=== PATIENT | female | born 1940 | race Caucasian/White ===

== ENCOUNTER 2016-11-28 17:26 | Emergency (ER) | payer MEDICARE, OTHER ==
--- NOTE | ~2016-11-28 | CN ---
Consultation Report [facility] [address] [facility] [place]. [address] NAME: SHERLY CARRINGTON : 42 STATUS : ADM IN [facility]#: [id number] AGE: 76 ADM/REG DATE : 11/28/16 MR#: [id number] REPORT SERV DATE: 11/29/16 DICTATED BY: RAISA KENYON DATE: 11/29/16 REPORT STATUS : Draft TRANSCRIBED BY: MODPaz DATE: 11/29/16 CARDIOLOGY CONSULTATION DATE OF CONSULTATION: PRIMARY MARINE ENGINE DRIVER: Raisa Kenyon M.D. CHIEF COMPLAINT: Dizziness. REASON FOR CONSULTATION: Atrial fibrillation. SOURCE: The patient and her chart. HISTORY OF PRESENT ILLNESS: Ms. Carrington is a very pleasant 76-year-old white woman with history of hypertension and left ventricular hypertrophy who was in her usual state of health until the day before yesterday when she "felt weird." She was dizzy in the shower and had near syncope but did not actually lose consciousness. She had another episode yesterday in a bookstore where she felt weird again, she saw Dr. Blackmon, who did an EKG, which was abnormal, and she was sent to the hospital for further care. She has not had any palpitations or actual syncope. No chest pain. No shortness of breath. Her legs have swollen a little. Her blood pressure has been low for her. She denies any diarrhea, constipation, or hair loss. REVIEW OF SYSTEMS: All other systems are negative. ALLERGIES: NO KNOWN DRUG ALLERGIES. MEDICATIONS: At home included amlodipine, artificial tears, [place], CoQ10, hydrochlorothiazide, metoprolol, multivitamins, omeprazole, Zoloft, and simvastatin. CARDIAC RISK FACTORS: Include hypertension, cholesterol, and remote tobacco. Denies diabetes or family history. SOCIAL HISTORY: The patient lives in [place], [place]. She is . Her biological son of heart disease. She is retired. FAMILY HISTORY: Negative for coronary disease at a young age. PAST MEDICAL HISTORY: Significant for hypertension and LVH. She had a stress test and an echocardiogram which were negative last year. Appendectomy in 1970 and cataract surgery. PHYSICAL EXAMINATION: GENERAL: A well-developed, well-nourished elderly white woman in no acute distress. VITAL Consultation Report [facility] [address] [place]. [address] NAME: SHERLY CARRINGTON : 42 STATUS : ADM IN PAT#: [id number] AGE: 76 ADM/REG DATE : 11/28/16 MR#: [id number] REPORT SERV DATE: 11/29/16 DICTATED BY: RAISA KENOYN DATE: 11/29/16 REPORT STATUS : Draft TRANSCRIBED BY: MODPaz DATE: 11/29/16 SIGNS: Stable grossly, afebrile. Heart rate is 90 to 100. Telemetry reveals atrial fibrillation. HEENT: Sclerae anicteric. Lips without cyanosis. NECK: Carotids 2+ and symmetrical. No bruits. No JVD. No thyromegaly. LUNGS: Clear to auscultation. No use of accessory muscles. HEART: Irregularly irregular without murmur, gallop, or rub. ABDOMEN: Positive bowel sounds. Soft and nontender. EXTREMITIES: Pulses are 2+ and symmetrical. No cyanosis, clubbing, or edema. BACK: No CVA tenderness. MUSCULOSKELETAL: Good tone. NEUROLOGIC: Alert and oriented x3. LABORATORY DATA: The EKG reveals atrial fibrillation with rate 74, nonspecific ST-T wave changes. Labs included white count 12.3, hemoglobin 14.9, hematocrit 45.0, platelets 254,000. INR 1.0, PTT 34.9, and BNP level 134. Sodium 140, potassium 3.6, chloride 103, CO2 of 25, glucose 110, BUN 31, and creatinine 1.12. TSH of 0.008. Free T4 of 1.34 and T3 free of 2.83. The procalcitonin is 0.08. CPK 92, MB 1.3, and troponin of less than 0.02. The urinalysis is pending at this time. The chest x-ray reveals no acute cardiopulmonary abnormality. IMPRESSION: 1. New-onset atrial fibrillation, possibly two days by history, rate fair control, on metoprolol. 2. CHADS2 score of 2 for hypertension and age. 3. Hypertension, under good control. 4. LVH and diastolic dysfunction. 5. Markedly suppressed TSH with normal free T4. RECOMMENDATIONS: 1. IV heparin, change to novel oral anticoagulants such as Eliquis. The risks, benefits, and complications were discussed with the patient. She understands them and those of her alternatives and wishes to proceed. Questions answered. 2. DELORES cardioversion. Today, the risks, benefits, and complications were discussed with the patient. She understands them and those of her alternatives and wishes to proceed. Questions answered. 3. Hospital Service to address thyroid. 4. Discussed with Dr. Beltre. KARTIK/RENARD Consultation Report [place] [address] [place]. [address] NAME: SHERLY CARRINGTON : 42 STATUS : ADM IN [facility]#: [id number] AGE: 76 ADM/REG DATE : 11/28/16 MR#: [id number] REPORT SERV DATE: 11/29/16 DICTATED BY: RAISA KENYON DATE: 11/29/16 REPORT STATUS : Draft TRANSCRIBED BY: RENARD DATE: 11/29/16 Raisa Kenyon M.D. / [id number] CC: Oscar Gonzales MD
--- NOTE | ~2016-11-28 | DS ---
Discharge Summary [facility] [place] [address] [place]. [address] NAME: SHERLY MULLEN : 42 STATUS : DIS IN PAT#: [id number] AGE: 76 ADM/REG DATE : 11/28/16 MR#: [id number] REPORT SERV DATE: 11/29/16 DICTATED BY: HELEN COOPER DATE: 11/29/16 REPORT STATUS : Draft TRANSCRIBED BY: MODL DATE: 11/29/16 ADMISSION DATE: 11/28/2016 DISCHARGE DATE: 11/29/2016 DIAGNOSES ON ADMISSION: 1. New onset atrial fibrillation. 2. History of hypertension. 3. Probable hyperthyroidism. 4. Hyperlipidemia. 5. Mild acute kidney injury, secondary to dehydration. DIAGNOSES ON DISCHARGE: 1. Atrial fibrillation, status post cardioversion, currently in normal sinus rhythm. 2. Subclinical hyperthyroidism, with suppressed TSH, normal free T4 and free T3. Recommended to see nail professional as an outpatient for further workup. 3. Mild acute kidney injury, secondary to dehydration, resolved next day with IV fluid hydration. 4. Mild asymptomatic urinary tract infection. Empiric antibiotic treatment was recommended since the patient did not have any symptoms, she can do it as an outpatient. 5. Hypertension, controlled. CONSULTANTS ON THE CASE: Railroad [employer] Truck Builder, Dr. Horace Sutherland for atrial fibrillation. PROCEDURES DONE: Cardioversion done on 11/29/2016. IMAGING STUDIES: Echocardiogram done on 11/29/2016, showed technically difficult stat study, normal left ventricular size and systolic function, estimated ejection fraction of 60%, no regional wall motion abnormalities, mild concentric LVH, normal right ventricle size and systolic function, moderate left atrial enlargement, no significant valvular disease. Chest x-ray done on 11/28/2016, no acute cardiopulmonary abnormality. Renal duplex ultrasound done on 11/29/2016 was normal. HISTORY OF PRESENT ILLNESS: Briefly, this is a very pleasant 76-year-old female, who was admitted by my colleague, Dr. Shital Nash for irregular heart beat and Dr. Sutherland her commercial manager was consulted, as well as she had mild dehydration on admission, and her creatinine on admission was 1.4. She was started on IV fluids and commercial manager was consulted for possible cardioversion and management of her atrial fibrillation. For the details, see history of present illness dictated by Dr. Yudith Nash on 11/28/2016. CONSULTANTS ON THE CASE: Dr. Vinicio Sutherland. HOSPITAL COURSE: Briefly, the patient was admitted to the hospital. Next day was seen by commercial manager, Dr. Sutherland, who recommended cardioversion and also he recommended the patient to be on Eliquis after cardioversion. The patient had successful cardioversion and her heart rate was in 70s, blood pressure as well was controlled in 150s and 140s. The patient Discharge Summary [address] [address] NAME: SHERLY MULLEN : 42 STATUS : DIS IN PAT#: [id number] AGE: 76 ADM/REG DATE : 11/28/16 MR#: [id number] REPORT SERV DATE: 11/29/16 DICTATED BY: HELEN COOPER DATE: 11/29/16 REPORT STATUS : Draft TRANSCRIBED BY: RENARD DATE: 11/29/16 was doing very well after cardioversion. I personally spoke with Dr. Sutherland and he recommended the patient to be discharged today since she was in normal sinus rhythm. She was asymptomatic and doing very well, and Dr. Sutherland recommended the patient to continue Eliquis in the dose of 5 mg p.o. twice a day, and I wrote prescription for Eliquis for patient per recommendation of Dr. Sutherland. Also, he recommended the patient to follow up with him in three to four weeks, as well as he recommended to continue her metoprolol at the home dose 50 mg p.o. b.i.d.. Subclinical hyperthyroidism. The patient on admission had her TSH checked and her TSH was over suppressed, it was 0.008. Although, her free T4 was 1.34, and free T3 was 2.83, which is a normal lab results. So, the patient has supper clinical hyperthyroidism which definitely can progress to overt hyperthyroidism, and the patient had a small nodule on her neck. The patient was offered workup, but she wanted to be discharged and to have outpatient workup. So, she was recommended to follow up with outpatient nail professional for further evaluation of her subclinical hyperthyroidism. She was given several names including Dr. Go and other nail professional in city and also Dr. Gonzales her primary care physician, will need to refer her to see nail professional, and the patient was agreeable to follow up with nail professional. Mild acute kidney injury, secondary to dehydration, resolved. Her creatinine improved yesterday, on 11/28/2016 it was 1.4, and today after fluid hydration creatinine was 1.12. It was recommended the patient to hold her hydrochlorothiazide and recheck her basic metabolic panel next week per Dr. Gonzales. Her electrolytes also were in the normal range. She was doing well. The patient was discharged in a stable condition per recommendation of Dr. Sutherland. As she herself also was requesting to be discharged. The patient was switched to observation. FOLLOWUP: Followup with Dr. Gonzales next week to check her basic metabolic panel. Follow up with Dr. Sutherland in three to four weeks. Follow up with nail professional as an outpatient for further workup of her subclinical hyperthyroidism. DISCHARGE MEDICATIONS: Eliquis 5 mg p.o. b.i.d., prescription was given for one month with one month refill per recommendation of Dr. Horace Sutherland and the correctional casework specialist assisted with Eliquis course, the patient was given a discount card. Ceftin 500 mg p.o. b.i.d. for three days for her asymptomatic UTI, antibiotic prescription was written. The patient to continue her home medications, calcium with vitamin D 500 mg a day, multivitamins daily, metoprolol 50 mg p.o. twice a day to be continued per recommendation of Dr. Horace Sutherland, omeprazole 20 mg a day, Zoloft 50 mg in afternoon and 100 mg in the morning; simvastatin 20 mg a day, Norvasc 10 mg a day. The patient was told to stop HCTZ. Coenzyme Q 200 mg a day, and artificial tears daily, I spent 45 minutes on discharge. MG/MODL Discharge Summary [address] [facility] [address] NAME: SHERLY MULLEN : 42 STATUS : DIS IN PAT#: [id number] AGE: 76 ADM/REG DATE : 11/28/16 MR#: [id number] REPORT SERV DATE: 11/29/16 DICTATED BY: HELEN COOPER DATE: 11/29/16 REPORT STATUS : Draft TRANSCRIBED BY: RENARD DATE: 11/29/16 Helen Cooper M.D. / [id number] CC: Kelly Radford MD Brian Negus, M.D. David Huffman, M.D.
--- NOTE | ~2016-11-28 | HP ---
History And Physical [facility] [address] [place]. [address] NAME: SHERLY MULLEN : 42 STATUS : ADM IN [facility]#: [id number] AGE: 76 ADM/REG DATE : 11/28/16 MR#: [id number] REPORT SERV DATE: 11/29/16 DICTATED BY: YUDITH FERRER DATE: 11/28/16 REPORT STATUS : Draft TRANSCRIBED BY: RENARD DATE: 11/28/16 DATE OF ADMISSION: 11/28/2016 CHIEF COMPLAINT: Palpitation and dizziness. Sent by primary care provider because of irregular heartbeats for one day. HISTORY OF PRESENT ILLNESS: This is a very pleasant 76-year-old female. She has a history of hypertension, history of GERD, history of hyperlipidemia, history of depression with anxiety, presenting today to [facility] from her primary care provider, Dr. Oscar Gonzales's office with complaints of irregular heart beats, palpitation, and dizziness for one day. It is important to note that the patient has a fairly healthy lady, no significant past medical history, except that she has been seen by Dr. Sutherland about one year ago for an abnormal EKG after she has been referred by her primary care provider. At that time, the patient tells me that she had a stress test which was normal and Dr. Sutherland prescribed some medications for high blood pressure. Since then she has no other medical issues. Yesterday, she woke up and she felt dizzy, near syncopal, and having a lot of palpitations. She did not have any chest pain or increasing shortness of breath. No PND or orthopnea. She has had not any syncope. No nausea or vomiting. No diarrhea, or constipation. No headaches. No increased urinary frequency or urgencies. No other complaints. After initial evaluation in the emergency room, Hospitalist Service has been asked for admission for further evaluation and treatment. PAST MEDICAL HISTORY: Significant for hypertension, hyperlipidemia, history of GERD, history of obesity, and anxiety disorder. PAST SURGICAL HISTORY: Include appendectomy, prior tumor removal from the left foot, and tubal ligation. SOCIAL HISTORY: Denies tobacco, alcohol, or IV drugs. ALLERGIES: THE PATIENT HAS NO DRUG ALLERGIES. FAMILY HISTORY: Significant for hypertension and diabetes and goiter. MEDICATIONS AT HOME: Include amlodipine, artificial tears, calcium and vitamin D, coenzyme Q, hydrochlorothiazide, Lopressor, multivitamin, Prilosec, Zoloft, Zocor, and ear drops. REVIEW OF SYSTEMS: A 14-point review of systems has been obtained and pertinent positive has been listed into the history of present illness. Otherwise, negative except those underlying above. PHYSICAL EXAMINATION: VITAL SIGNS: Currently, the patient is afebrile. Blood pressure 177/93, heart rate 121/30, respiratory rate 16, and saturating 93% on room air. GENERAL: She is a very pleasant, well-developed, well-nourished female, in nonacute distress. She is alert and oriented x3. She is nonfocal. She follows all her commands History And Physical [address] [address] NAME: SHERLY MULLEN : 42 STATUS : ADM IN [facility]#: [id number] AGE: 76 ADM/REG DATE : 11/28/16 MR#: [id number] REPORT SERV DATE: 11/29/16 DICTATED BY: YUDITH FERRER DATE: 11/28/16 REPORT STATUS : Draft TRANSCRIBED BY: RENARD DATE: 11/28/16 appropriately. HEENT: Show pupils equal, round, and reactive to light. Extraocular movements intact. No JVD. No lymphadenopathy. No thyromegaly appreciated. CHEST: Eval shows bilateral air entry. Clear anteroposterior. No wheezes, crackles, or rhonchi appreciated. CARDIOVASCULAR: Irregularly irregular. S1, S2 positive. No S3, no S4. No murmurs, rubs, or gallops appreciated. ABDOMEN: Soft, positive bowel sounds. Nontender. No guarding. No rebound. EXTREMITIES: No clubbing, cyanosis, or edema. NEUROLOGIC: The patient is alert and oriented x3. She is nonfocal. She follows all her commands appropriately. LABORATORY DATA: Labs from today include sodium 139, potassium is 3.7, chloride 101, CO2 of 30, BUN 32, creatinine 1.40, glucose 105. There is a TSH less than 0.005. White count 12.2, hemoglobin 15.8, hematocrit 47.4, and platelets are 258. Her INR is 1. Her chest x-ray does not show any acute cardiopulmonary abnormalities to be identified. EKG shows atrial fibrillation with RVR. ASSESSMENT AND PLAN: This is a very pleasant 76-year-old female with: 1. New onset atrial fibrillation with rapid ventricular response. a. History of hypertension. b. Probable hyperthyroidism. c. Hyperlipidemia. d. Gastroesophageal reflux disease. e. Obesity. The patient is going to be admitted to monitored bed place. We will place her on Cardizem drip as per protocol, heparin drip as well. Continue her beta peri. Rule her for myocardial infarction by serial cardiac enzymes, serial EKG. Check a 2D echo and consult Dr. Sutherland for Cardiology Service for further recommendation. 2. History of hypertension. We are going to place her on Cardizem drip as well as continue her beta peri. I am going to hold her hydrochlorothiazide and hold her Norvasc currently. 3. Acute kidney injury. We are going to provide vigorous IV hydration. Strict I's and O's. Strict daily weights. Hold the diuretics. We will check a renal ultrasound. Check spot urine for sodium and creatinine osmolality, as well as UA, and urine cultures. 4. Probable hyperthyroidism. I am going to check a free T4 and free T3. If diagnosed, the patient probably needs to be started on treatment. 5. Hyperlipidemia. We will continue her lipid-lowering agent. We are going to provide reasonable pain and nausea control as well as gastrointestinal and deep venous thrombosis prophylaxis with SCDs. Further workup and recommendation pending above. It is worthwhile to note that the patient is going to be followed by Dr. Celi Beltre. History And Physical [address] [address] NAME: SHERLY MULLEN : 42 STATUS : ADM IN [facility]#: [id number] AGE: 76 ADM/REG DATE : 11/28/16 MR#: [id number] REPORT SERV DATE: 11/29/16 DICTATED BY: YUDITH FERRER DATE: 11/28/16 REPORT STATUS : Draft TRANSCRIBED BY: RENARD DATE: 11/28/16 YASMANI/RENARD Yudith Ferrer M.D. / [id number] CC: Kelly Radford MD
--- NOTE | ~2016-11-28 | OP ---
Record Of [place] [address] [place]. [address] NAME: SHERLY CARRINGTON : 42 STATUS : ADM IN [facility]#: [id number] AGE: 76 ADM/REG DATE : 11/28/16 MR#: [id number] REPORT SERV DATE: 11/29/16 DICTATED BY: DATE: REPORT STATUS : Draft TRANSCRIBED BY: MODL DATE: 11/29/16 DATE OF PROCEDURE: 11/29/2016 CHIEF COMPLAINT/REASON FOR PROCEDURE: Atrial fibrillation. Written informed consent obtained. Please see chart for documentation. PROCEDURE DETAILS: With the assistance of my Anesthesia colleagues, Mrs. Carrington was sedated for the procedure. It was verified that the patient had received her Eliquis prior to the procedure. The transesophageal probe was placed with one attempt without complication. Following transesophageal echocardiogram, which demonstrated no thrombus present, direct cardioversion was performed 200 joules x1 with return to sinus rhythm. DELORES details; 1. The aortic valve was trileaflet. There was no evidence of significant aortic valvular regurgitation. 2. The left ventricular systolic function was normal with a visually estimated ejection fraction greater than 50%. The chamber size and wall thickness appeared normal. 3. The right ventricular chamber size and systolic function appeared normal. 4. There was biatrial dilatation. There was spontaneous echo contrast present within the left atrium, however, no evidence of left atrial or left atrial appendage thrombus. The left atrial appendage was interrogated at multiple levels and depths. Doppler velocities within the left atrial appendage were highly variable due to underlying arrhythmia between 40 and 60 cm/second. There was no evidence of right atrial thrombus. 5. The pulmonary valve appeared to open normally. There was mild pulmonary valvular regurgitation. 6. The mitral and tricuspid valve leaflets were normal. There was trivial mitral valve regurgitation. There was mild tricuspid valve regurgitation. 7. There was no evidence of pericardial effusion. IMPRESSION: Successful DELORES cardioversion. Timothy/RENARD Isabelle Cobb M.D. / [id number] CC: Celi Beltre M.D. Record Of [facility] [address] [place] [address] NAME: SHERLY CARRINGTON : 42 STATUS : ADM IN PAT#: [id number] AGE: 76 ADM/REG DATE : 11/28/16 MR#: [id number] REPORT SERV DATE: 11/29/16 DICTATED BY: DATE: REPORT STATUS : Draft TRANSCRIBED BY: MODL DATE: 11/29/16 Oscar Gonzales MD
[2016-11-28 17:08] LABS: BASOPHILS 0.5 %; BASOPHILS ABSOLUTE 0.06 10/3/uL (0.0-0.16); EOSINOPHILS 1.2 %; EOSINOPHILS ABSOLUTE 0.15 10/3/uL (0.0-0.53); HEMATOCRIT 47.4 % (36.0-48.0); HEMOGLOBIN 15.8 g/dL (12.0-16.0); IMMATURE GRANULOCYTES 0.3 %; IMMATURE GRANULOCYTES ABSOLUTE 0.04 10/3/uL (0.0-0.11); LYMPHOCYTES 17.4 %; LYMPHOCYTES ABSOLUTE 2.11 10/3/uL (0.67-4.30); MEAN CORPUS HGB CONC 33.3 g/dL (32.0-36.0); MEAN CORPUSCULAR HEMOGLOB 30.1 pg (26.0-34.0); MEAN CORPUSCULAR VOLUME 90.3 fL (80-100); MEAN PLATELET VOLUME 12.5 fL (9.2-13.0); MONOCYTES 7.2 %; MONOCYTES ABSOLUTE 0.88 10/3/uL (0.21-1.20); NEUTROPHILS 73.4 %; NEUTROPHILS ABSOLUTE 8.91 10/3/uL (2.02-8.40); PLATELET COUNT 258 10/3/uL (150-400); RBC DISTRIBUTION WIDTH 14.7 % (12.0-16.0); RED CELL COUNT 5.25 10/6/uL (4.0-5.6); WHITE BLOOD CELLS 12.2 10/3/uL (4.5-10.5)
[2016-11-28 17:09] LABS: MANUAL DIFF NO %
[2016-11-28 17:15] LABS: PROTIME (NOT ORD) 13.3 SEC (12.0-14.5)
[2016-11-28 17:16] LABS: PARTIAL THROMBO TIME 29.8 SEC (22.5-37.2)
[2016-11-28 17:32] LABS: BUN (BLOOD UREA NITROGEN) 32 MG/DL (6-23); CALCIUM, SERUM 8.8 MG/DL (8.5-10.4); CHEST PAIN PROFILE TAT 0 Hrs 28 Mins; CHLORIDE, SERUM 101 MMOL/L (96-112); CO2 (CARBON DIOXIDE) 30 MMOL/L (24-34); GFR AFRICAN AMERICAN 42 ML/MIN (>=60); GFR NON AFRICAN AMERICAN 37 ML/MIN (>=60); GLUCOSE, SERUM 105 MG/DL (60-99); POTASSIUM, SERUM 3.7 MMOL/L (3.5-5.3); SODIUM, SERUM 139 MMOL/L (135-148); TROPONIN I <0.02 NG/ML (<0.05); ULTRASENSITIVE TSH < 0.005 MCIU/ML (0.358-3.740)
[2016-11-28] MEDS ORDERED: ZOL50 PO (18:18)
[2016-11-28] MEDS ORDERED: HYDROCHLOROT25 MG PO (18:18)
[2016-11-28] MEDS ORDERED: NORV10 PO (18:18)
[2016-11-28] MEDS ORDERED: PRILO PO (18:18)
[2016-11-28] MEDS ORDERED: ZOCOR20 PO (18:19)
[2016-11-28] MEDS ORDERED: ZOL100 PO (18:30)
[2016-11-28] MEDS ORDERED: LOP50 PO (18:32)
[2016-11-28] MEDS ORDERED: CO Q-10200 MG PO (18:32)
[2016-11-28] MEDS ORDERED: MULTIVIT/MIN PO (18:33)
[2016-11-28] MEDS ORDERED: REFRESH OPH SO0.3 ML OPH (18:33)
[2016-11-28] MEDS ORDERED: OS500+D PO (18:33)
[2016-11-28 18:34] LABS: FREE T4 1.38 NG/DL (0.76-1.46); T3 UPTAKE 50 % (30-45)
[2016-11-28] MEDS ORDERED: [UNRECOGNIZED DRUG - REMARK] OT (18:34)
[2016-11-28 22:51] LABS: ACETAMINOPHEN LEVEL (TYLENOL) < 2.0 MCG/ML (10.0-20.0); ALBUMIN 3.8 G/DL (3.5-5.0); ALCOHOL < 3 MG/DL (0); ALKALINE PHOSPHATASE 108 U/L (45-117); DIRECT BILIRUBIN < 0.1 MG/DL (0.0-0.4); INDIRECT BILIRUBIN(NOT ORDER) 0.2 MG/DL (0.1-0.9); PHOSPHORUS, SERUM 4.1 MG/DL (2.5-4.5); SALICYLATE < 1.7 MG/DL (-); SGOT(AST) 30 U/L (5-40); SGPT(ALT) 38 U/L (5-65); TOTAL BILIRUBIN 0.3 MG/DL (0-1.2); TOTAL PROTEIN 8.6 G/DL (6.0-8.5)
[2016-11-28 22:52] LABS: B NATRIURETIC PEPTIDE (BNP) 208.1 PG/ML (< 100.0)
[2016-11-29 00:06] LABS: PROCALCITONIN 0.09 ng/mL (<0.5)
[2016-11-29 01:32] LABS: TROPONIN I <0.02 NG/ML (<0.05)
[2016-11-29 01:36] LABS: CPK 92 U/L (0-200)
[2016-11-29 01:37] LABS: CK-MB 1.3 NG/ML
[2016-11-29 04:33] LABS: BASOPHILS 0.5 %; BASOPHILS ABSOLUTE 0.06 10/3/uL (0.0-0.16); EOSINOPHILS 2.2 %; EOSINOPHILS ABSOLUTE 0.27 10/3/uL (0.0-0.53); HEMOGLOBIN 14.9 g/dL (12.0-16.0); IMMATURE GRANULOCYTES 0.3 %; IMMATURE GRANULOCYTES ABSOLUTE 0.04 10/3/uL (0.0-0.11); LYMPHOCYTES 35.7 %; LYMPHOCYTES ABSOLUTE 4.41 10/3/uL (0.67-4.30); MEAN CORPUS HGB CONC 33.1 g/dL (32.0-36.0); MEAN CORPUSCULAR HEMOGLOB 30.1 pg (26.0-34.0); MEAN CORPUSCULAR VOLUME 90.9 fL (80-100); MONOCYTES 6.6 %; MONOCYTES ABSOLUTE 0.82 10/3/uL (0.21-1.20); NEUTROPHILS 54.7 %; NEUTROPHILS ABSOLUTE 6.74 10/3/uL (2.02-8.40); PLATELET COUNT 254 10/3/uL (150-400); RBC DISTRIBUTION WIDTH 14.6 % (12.0-16.0); RED CELL COUNT 4.95 10/6/uL (4.0-5.6); WHITE BLOOD CELLS 12.3 10/3/uL (4.5-10.5)
[2016-11-29 04:37] LABS: MANUAL DIFF NO %
[2016-11-29 04:44] LABS: PARTIAL THROMBO TIME 34.9 SEC (22.5-37.2); PROTIME (NOT ORD) 13.5 SEC (12.0-14.5)
[2016-11-29 05:00] LABS: A/G RATIO 0.8 (0.7-1.9); ALBUMIN 3.5 G/DL (3.5-5.0); BUN (BLOOD UREA NITROGEN) 31 MG/DL (6-23); CALCIUM, SERUM 8.8 MG/DL (8.5-10.4); CHLORIDE, SERUM 103 MMOL/L (96-112); CREATININE 1.12 MG/DL (0.55-1.02); FREE T4 1.34 NG/DL (0.76-1.46); GFR AFRICAN AMERICAN 56 ML/MIN (>=60); GFR NON AFRICAN AMERICAN 48 ML/MIN (>=60); GLOBULIN 4.3 G/DL (2.5-4.1); GLUCOSE, SERUM 110 MG/DL (60-99); PHOSPHORUS, SERUM 4.4 MG/DL (2.5-4.5); POTASSIUM, SERUM 3.6 MMOL/L (3.5-5.3); SGPT(ALT) 29 U/L (5-65); SODIUM, SERUM 140 MMOL/L (135-148); TOTAL BILIRUBIN 0.3 MG/DL (0-1.2); TOTAL PROTEIN 7.8 G/DL (6.0-8.5)
[2016-11-29 05:01] LABS: ALKALINE PHOSPHATASE 96 U/L (45-117); CO2 (CARBON DIOXIDE) 25 MMOL/L (24-34)
[2016-11-29 05:02] LABS: SGOT(AST) 18 U/L (5-40); ULTRASENSITIVE TSH 0.008 MCIU/ML (0.358-3.740)
[2016-11-29 06:39] LABS: PROCALCITONIN 0.08 ng/mL (<0.5)
[2016-11-29 07:34] LABS: CREATININE, URINE 98.3 MG/DL
[2016-11-29 07:50] LABS: ASCORBIC ACID (UR NOT ORDER) NEG (NEG); BILIRUBIN, URINE NEGATIVE (NEG); KETONE, URINE NEGATIVE (NEG); LEUKOCYTE ESTERASE(NOT OR MOD (NEG); WBC (NOT ORDERED) (RFLEX) 19 (0-5)
[2016-11-29 08:11] LABS: HEPATITIS B SURFACE ANTIGEN NON-REACTIVE (NON-REACT)
[2016-11-29 08:31] LABS: HEPATITIS B CORE AB IGM NON-REACTIVE (NON-REAC); HEPATITIS C ANTIBODY NON-REACTIVE (NON-REACT)
[2016-11-29 08:33] LABS: HEP A ANTIBODY IGM NON-REACTIVE (NON-REACT)
[2016-11-29 10:35] LABS: GLYCOHEMOGLOBIN (HbA1c) 5.7 % (4.7-6.1)
[2016-11-29 12:47] LABS: CK-MB 1.6 NG/ML; CPK 88 U/L (0-200); TROPONIN I <0.02 NG/ML (<0.05)
[2016-11-29] MEDS ORDERED: ELIQUIS 5 MG TAB5 MG PO (15:02)
[2016-11-29] MEDS ORDERED: CEFT5 PO (15:06)
== END 2016-11-29 16:10 | disposition home or self-care (01) ==
LOC: ER 17:26
PROVIDERS: Hospitalist; Internal Medicine
DX: I48.91 Unspecified atrial fibrillation (principal); E05.90 Thyrotoxicosis, unspecified without thyrotoxic crisis or storm; N17.9 Acute kidney failure, unspecified; I10 Essential (primary) hypertension; R00.2 Palpitations; R42 Dizziness and giddiness; E78.5 Hyperlipidemia, unspecified; E66.9 Obesity, unspecified; F41.9 Anxiety disorder, unspecified; E86.0 Dehydration; N39.0 Urinary tract infection, site not specified; I08.3 Combined rheumatic disorders of mitral, aortic and tricuspid valves; I37.1 Nonrheumatic pulmonary valve insufficiency
CPT/HCPCS: 71010; 80048; 80053; 80074; 80076; 80307; 81001; 82140; 82550; 82553; 82570; 83036; 83615; 83735; 83880; 83935; 84100; 84145; 84300; 84439; 84443; 84479; 84481; 84484; 85025; 85610; 85730; 87086; 92960; 93005; 93312; 93320; 93325; 93975; 96374; 99291; A9270-GY; C8929; J3370; Q9957